=== PATIENT | female | born 1995 | race Caucasian/White ===

== ENCOUNTER 2017-09-11 06:23 | Inpatient (IN) | payer MEDICAID ==
[~2017-09-11] VITALS: Ht 157.5 cm; Wt 55.3 kg
[~2017-09-11 06:23] MED LIST: ALBUTEROL S2 MG/5 ML IH; AUG500 GT; BACLOFEN20 MG GT; BANZEL400 MG GT; CARNITOR100 MG/ML GT; CLINDAMYCIN HC300 MG GT; DEPAKOTE500 MG GT; DIAZEPAM5 MG GT; FLA500 GT; FLAGYL500 MG GT; GLYCOPYRROLATE1 M1 GT; KEP500 GT; KEPPRA1000 M1 GT; LAC GT; LAXATIVE5 M1 PR; LEVAQUIN750 MG GT; LEVOTHYROXIN0.025 M2 GT; LORATADINE5 MG/5 ML GT; NASONEX0.05 MG/Ac; NEXIUM20 MG GT; PEPCID20 MG GT; PHENOBARBITAL64.8 MG GT; PHENOBARBITAL64.8 MG PO; PULMICORT0.5 MG/2 M NEB; SENNA8.6 M2 GT; SENNA8.8 MG/51 GT; TIZANIDINE HCL4 MG PO; TIZANIDINE4 M1 GT; TOP100 PO; TOPAMAX GT; TOPAMAX100 MG GT; TOPAMAX100 MG PO; TOPAMAX25 MG GT; TOPAMAX50 M1 PO; [UNRECOGNIZED DRUG - CODE] GT
[2017-09-11 07:31] LABS: CALCIUM 8.6 mg/dL (8.5-10.1); CARBON DIOXIDE 25.6 mmol/L (21-32); CHLORIDE SERUM 103 mmol/L (98-107); CREATININE SERUM 0.8 mg/dL (0.6-1.0); GFR1 > 60 mL/min; GLUCOSE SERUM 112 mg/dL (74-106); POTASSIUM SERUM 3.5 mmol/L (3.5-5.1); SODIUM SERUM 140 mmol/L (136-145)
[2017-09-11 07:36] LABS: ALBUMIN 3.6 g/dL (3.4-5.0); ALKALINE PHOSPHATASE 152 U/L (46-116); ALT/SGPT 45 U/L (14-59); AST/SGOT 50 U/L (15-37); BILIRUBIN TOTAL 0.3 mg/dL (0.20-1.00); TOTAL PROTEIN, SERUM 8.1 g/dL (6.4-8.2)
[2017-09-11 07:39] LABS: RED CELL DISTRIBUTION WIDTH 12.4 % (11.5-14.5)
[2017-09-11 07:41] LABS: CHOLESTEROL 128 mg/dL (<200); HDL CHOLESTEROL 79 mg/dL (40-60)
[2017-09-11 07:46] LABS: BASOPHIL % 0 % (0-2); PLATELET COUNT 122 x10^3mcL (130-400)
[2017-09-11] MEDS ORDERED: FLOVENT DI100 MCG/A1 (08:29)
[2017-09-11 08:52] LABS: microscopic required? NO
[2017-09-11 09:06] LABS: urine erythrocyte NEGATIVE (NEGATIVE)
[2017-09-11 10:52] LABS: T3 TOTAL 0.62 ng/mL
[2017-09-11 11:12] LABS: AMPHETAMINE QUAL UR NONE DETECTED (NEG <=1000); MAGNESIUM 2.2 mg/dL (1.8-2.4); PHOSPHOROUS 2.5 mg/dL (2.5-4.9)
[2017-09-11 11:16] LABS: CHOLESTEROL/HDL RATIO 1.6
[2017-09-11 11:20] LABS: FREE T4 0.85 ng/dL (0.76-1.46); FREE THYROXINE INDEX 1.9 ug/dL (1.4-4.5); T4(THYROXINE) 5.7 ug/dL (4.7-13.3)
[2017-09-11 11:47] VITALS: BP 102/40
[2017-09-11 14:28] VITALS: BP 102/40
[2017-09-11 19:15] VITALS: BP 111/54
[2017-09-11 21:03] VITALS: BP 115/73
[2017-09-12 05:21] VITALS: BP 112/60
[2017-09-12 09:44] VITALS: BP 104/54
[2017-09-12 18:29] LABS: CALCIUM 7.7 mg/dL (8.5-10.1); CARBON DIOXIDE 23.4 mmol/L (21-32); CHLORIDE SERUM 112 mmol/L (98-107); CREATININE SERUM 0.5 mg/dL (0.6-1.0); GFR1 > 60 mL/min; GLUCOSE SERUM 112 mg/dL (74-106); POTASSIUM SERUM 3.5 mmol/L (3.5-5.1); SODIUM SERUM 144 mmol/L (136-145)
[2017-09-12 18:43] LABS: BASOPHIL % 0.4 % (0-2); RED CELL DISTRIBUTION WIDTH 13.6 % (11.5-14.5)
[2017-09-12 19:08] VITALS: BP 100/46
[2017-09-12 20:12] LABS: PLATELET COUNT 123 x10^3mcL (130-400)
[2017-09-12 21:08] VITALS: BP 123/50
[2017-09-13 05:46] VITALS: BP 127/52
[2017-09-13 07:56] LABS: BASOPHIL % 0.1 % (0-2); RED CELL DISTRIBUTION WIDTH 13.4 % (11.5-14.5)
[2017-09-13 08:19] LABS: PLATELET COUNT 88 x10^3mcL (130-400)
[2017-09-13 08:22] LABS: CALCIUM 8.2 mg/dL (8.5-10.1); CARBON DIOXIDE 22.1 mmol/L (21-32); CHLORIDE SERUM 111 mmol/L (98-107); CREATININE SERUM 0.4 mg/dL (0.6-1.0); GFR1 > 60 mL/min; GLUCOSE SERUM 102 mg/dL (74-106); MAGNESIUM 1.9 mg/dL (1.8-2.4); PHOSPHOROUS 2.4 mg/dL (2.5-4.9); POTASSIUM SERUM 3.8 mmol/L (3.5-5.1); SODIUM SERUM 143 mmol/L (136-145)
[2017-09-13 10:20] VITALS: BP 104/72
[2017-09-13 20:53] VITALS: BP 98/40
[2017-09-14 06:03] VITALS: BP 93/49
[2017-09-14 07:07] LABS: CALCIUM 8.7 mg/dL (8.5-10.1); CARBON DIOXIDE 22.4 mmol/L (21-32); CHLORIDE SERUM 108 mmol/L (98-107); CREATININE SERUM 0.3 mg/dL (0.6-1.0); GFR1 > 60 mL/min; GLUCOSE SERUM 119 mg/dL (74-106); POTASSIUM SERUM 3.8 mmol/L (3.5-5.1); SODIUM SERUM 140 mmol/L (136-145)
[2017-09-14 07:23] LABS: PLATELET COUNT 107 x10^3mcL (130-400); RED CELL DISTRIBUTION WIDTH 13.2 % (11.5-14.5)
[2017-09-14 09:13] VITALS: BP 99/54
[2017-09-14 11:25] LABS: BAND NEUTROPHIL 6 % (0-10); BASOPHIL 0 % (0-2); MONOCYTE 9 % (0-7); SEGMENTED NEUTROPHILS 57 % (37-75)
[2017-09-14 11:26] LABS: PLATELET MORPHOLOGY PLATELETS NORMAL
[2017-09-14 17:15] VITALS: BP 90/64
[2017-09-14 22:00] VITALS: BP 93/51
[2017-09-15 06:20] VITALS: BP 93/62
[2017-09-15 07:00] LABS: RED CELL DISTRIBUTION WIDTH 12.2 % (11.5-14.5)
[2017-09-15 07:09] LABS: BASOPHIL % 2.4 % (0-2); PLATELET COUNT 121 x10^3mcL (130-400)
[2017-09-15 07:28] LABS: CALCIUM 8.9 mg/dL (8.5-10.1); CARBON DIOXIDE 21.7 mmol/L (21-32); CHLORIDE SERUM 106 mmol/L (98-107); CREATININE SERUM 0.3 mg/dL (0.6-1.0); GFR1 > 60 mL/min; GLUCOSE SERUM 117 mg/dL (74-106); POTASSIUM SERUM 4.2 mmol/L (3.5-5.1); SODIUM SERUM 139 mmol/L (136-145)
[2017-09-15] MEDS ORDERED: LEVOFLOXACIN500 M1 GT (08:25)
[2017-09-15] MEDS ORDERED: LAC GT (08:26)
[2017-09-15 10:12] VITALS: BP 103/56
[2017-09-15 13:39] VITALS: BP 103/56
== END 2017-09-15 17:10 | DRG 137 ==
LOC: ED 06:23 → MU 08:44 → DU 08:44 → MU 09-12 07:47
PROVIDERS: Emergency Medicine; Family Medicine
DX: J69.0 Pneumonitis due to inhalation of food and vomit (principal); N17.0 Acute kidney failure with tubular necrosis; H47.619 Cortical blindness, unspecified side of brain; R53.2 Functional quadriplegia; F73 Profound intellectual disabilities; G80.1 Spastic diplegic cerebral palsy; H00.15 Chalazion left lower eyelid; G40.409 Other generalized epilepsy and epileptic syndromes, not intractable, without status epilepticus; E83.39 Other disorders of phosphorus metabolism; E83.51 Hypocalcemia; K59.00 Constipation, unspecified; J31.0 Chronic rhinitis; Z93.1 Gastrostomy status; Z74.01 Bed confinement status; Z68.1 Body mass index [BMI] 19.9 or less, adult; J44.1 Chronic obstructive pulmonary disease with (acute) exacerbation
CPT/HCPCS: 83880; 84439; 87804; 90658; J0696; J1956; J3490; J7030; J7613; J7626; Q0092

== ENCOUNTER 2017-09-19 09:33 | Inpatient (IN) | payer MEDICAID ==
[~2017-09-19] VITALS: Ht 152.4 cm; Wt 44.0 kg
[~2017-09-19 09:33] MED LIST changes: +FLOVENT DI100 MCG/A1; +LEVOFLOXACIN500 M1 GT
[2017-09-19 09:36] VITALS: Ht 152.4 cm; Wt 44.0 kg
[2017-09-19] MEDS ORDERED: CRANBERRY450 M2 GT (10:08)
[2017-09-19] MEDS ORDERED: LORAZEPAM2 MG GT (10:13)
[2017-09-19 10:49] LABS: CALCIUM 8.8 mg/dL (8.5-10.1); CARBON DIOXIDE 25.1 mmol/L (21-32); CHLORIDE SERUM 106 mmol/L (98-107); CREATININE SERUM 0.5 mg/dL (0.6-1.0); GFR1 > 60 mL/min; GLUCOSE SERUM 85 mg/dL (74-106); POTASSIUM SERUM 4.1 mmol/L (3.5-5.1); SODIUM SERUM 143 mmol/L (136-145)
[2017-09-19 10:53] LABS: ALBUMIN 3.6 g/dL (3.4-5.0); ALKALINE PHOSPHATASE 143 U/L (46-116); ALT/SGPT 101 U/L (14-59); AST/SGOT 58 U/L (15-37); BILIRUBIN TOTAL 0.3 mg/dL (0.20-1.00); TOTAL PROTEIN, SERUM 7.8 g/dL (6.4-8.2)
[2017-09-19 10:54] LABS: BASOPHIL % 0.3 % (0-2); PLATELET COUNT 245 x10^3mcL (130-400); RED CELL DISTRIBUTION WIDTH 13.1 % (11.5-14.5)
[2017-09-19 11:08] LABS: UA SPECIFIC GRAVITY 1.015 (1.005-1.035); microscopic required? YES; urine erythrocyte NEGATIVE (NEGATIVE)
[2017-09-19 11:33] LABS: MAGNESIUM 2.4 mg/dL (1.8-2.4); PHOSPHOROUS 4.1 mg/dL (2.5-4.9)
[2017-09-19 11:48] LABS: TOTAL PROTEIN CSF 274.1 mg/dL (15-45)
[2017-09-19 12:11] LABS: APPEARANCE CSF BLOODY; COLOR CSF RED; LYMPHOCYTE CSF 40 % (40-80); MONOCYTE CSF 10 %; RBC CSF 35 /cumm (0); VOLUME CSF 1.5 mL; WBC CSF 8 /cumm (0-5)
[2017-09-19 14:31] LABS: APPEARANCE CSF CLOUDY; COLOR CSF BLOODY; LYMPHOCYTE CSF 40 % (40-80); RBC CSF 35 /cumm (0); VOLUME CSF 1.5 mL; WBC CSF 8 /cumm (0-5)
[2017-09-19 14:32] LABS: MONOCYTE CSF 10 %
[2017-09-19 15:46] VITALS: BP 98/48
[2017-09-19 17:00] VITALS: BP 85/60
[2017-09-19 19:15] VITALS: BP 106/51
[2017-09-19 23:30] VITALS: BP 88/42
[2017-09-20 03:05] VITALS: BP 101/59
[2017-09-20 05:32] LABS: BASOPHIL % 0.3 % (0-2); CHLORIDE SERUM 114 mmol/L (98-107); CREATININE SERUM 0.4 mg/dL (0.6-1.0); GFR1 > 60 mL/min; GLUCOSE SERUM 82 mg/dL (74-106); MAGNESIUM 2.3 mg/dL (1.8-2.4); PHOSPHOROUS 4.5 mg/dL (2.5-4.9); PLATELET COUNT 181 x10^3mcL (130-400); POTASSIUM SERUM 4.1 mmol/L (3.5-5.1); RED CELL DISTRIBUTION WIDTH 12.9 % (11.5-14.5); SODIUM SERUM 147 mmol/L (136-145)
[2017-09-20 08:00] VITALS: BP 111/72
[2017-09-20 12:00] VITALS: BP 99/56
[2017-09-20 16:00] VITALS: BP 119/73
[2017-09-20 22:12] VITALS: BP 104/52
[2017-09-21] VITALS (8 sets, daily range): BP systolic 90–148; BP diastolic 50–77
[2017-09-21 05:56] LABS: BASOPHIL % 0.3 % (0-2); PLATELET COUNT 226 x10^3mcL (130-400); RED CELL DISTRIBUTION WIDTH 12.9 % (11.5-14.5)
[2017-09-21 05:57] LABS: CALCIUM 8.6 mg/dL (8.5-10.1); CARBON DIOXIDE 23.3 mmol/L (21-32); CHLORIDE SERUM 111 mmol/L (98-107); CREATININE SERUM 0.6 mg/dL (0.6-1.0); GFR1 > 60 mL/min; GLUCOSE SERUM 91 mg/dL (74-106); MAGNESIUM 2.3 mg/dL (1.8-2.4); PHOSPHOROUS 2.9 mg/dL (2.5-4.9); POTASSIUM SERUM 3.6 mmol/L (3.5-5.1); SODIUM SERUM 145 mmol/L (136-145)
[2017-09-22 05:00] VITALS: BP 100/55
[2017-09-22 06:49] LABS: CALCIUM 8.4 mg/dL (8.5-10.1); CARBON DIOXIDE 22.8 mmol/L (21-32); CHLORIDE SERUM 111 mmol/L (98-107); CREATININE SERUM 0.5 mg/dL (0.6-1.0); GFR1 > 60 mL/min; GLUCOSE SERUM 106 mg/dL (74-106); MAGNESIUM 2.2 mg/dL (1.8-2.4); PHOSPHOROUS 3.4 mg/dL (2.5-4.9); SODIUM SERUM 144 mmol/L (136-145)
[2017-09-22 07:02] LABS: BASOPHIL % 0.5 % (0-2); PLATELET COUNT 196 x10^3mcL (130-400); RED CELL DISTRIBUTION WIDTH 12.9 % (11.5-14.5)
[2017-09-22 16:43] VITALS: BP 98/41
[2017-09-22 19:46] VITALS: BP 140/58
[2017-09-23 05:55] VITALS: BP 99/43
[2017-09-23 06:43] LABS: CALCIUM 8.5 mg/dL (8.5-10.1); CARBON DIOXIDE 22.1 mmol/L (21-32); CHLORIDE SERUM 110 mmol/L (98-107); CREATININE SERUM 0.5 mg/dL (0.6-1.0); GFR1 > 60 mL/min; GLUCOSE SERUM 105 mg/dL (74-106); MAGNESIUM 2.1 mg/dL (1.8-2.4); PHOSPHOROUS 3.6 mg/dL (2.5-4.9); SODIUM SERUM 143 mmol/L (136-145)
[2017-09-23 08:09] LABS: BASOPHIL % 0.5 % (0-2); PLATELET COUNT 217 x10^3mcL (130-400); RED CELL DISTRIBUTION WIDTH 13.3 % (11.5-14.5)
[2017-09-23 10:06] VITALS: BP 92/45
[2017-09-23 14:24] VITALS: BP 107/433
[2017-09-23 15:01] VITALS: BP 107/43
[2017-09-23] MEDS ORDERED: LORAZEPAM2 MG GT (15:01)
[2017-09-23] MEDS ORDERED: LEVAQUIN750 MG GT (15:06)
[2017-09-23] MEDS ORDERED: CLEOCIN HCL300 MG PO (15:20)
== END 2017-09-23 16:03 | DRG 137 ==
LOC: ED 09:33 → IC 10:52 → DU 10:52 → IC 15:44 → DU 09-20 17:21 → MU 09-22 08:31
PROVIDERS: Emergency Medicine; Family Medicine; Student in an Organized Health Care Education/Training Program
DX: J69.0 Pneumonitis due to inhalation of food and vomit (principal); N17.0 Acute kidney failure with tubular necrosis; H47.619 Cortical blindness, unspecified side of brain; G80.0 Spastic quadriplegic cerebral palsy; Q04.6 Congenital cerebral cysts; M41.40 Neuromuscular scoliosis, site unspecified; K21.9 Gastro-esophageal reflux disease without esophagitis; G40.909 Epilepsy, unspecified, not intractable, without status epilepticus; J45.909 Unspecified asthma, uncomplicated; J30.9 Allergic rhinitis, unspecified; Z68.20 Body mass index [BMI] 20.0-20.9, adult; Z93.1 Gastrostomy status
CPT/HCPCS: 83880; 87804; J0133; J0456; J0696; J1165; J1953; J2060; J2543; J3490; J7030; J7050; J7613; J7620; J7626; J7644; Q0092

== ENCOUNTER 2017-11-12 17:08 | Emergency (ER) | payer MEDICAID ==
[~2017-11-12] VITALS: Ht 147.3 cm; Wt 54.4 kg
[~2017-11-12 17:08] MED LIST changes: +CLEOCIN HCL300 MG PO; +CRANBERRY450 M2 GT; +LORAZEPAM2 MG GT
[2017-11-12 17:18] VITALS: Ht 147.3 cm; Wt 54.4 kg
[2017-11-12 19:33] VITALS: BP 85/46
== END 2017-11-12 19:33 | disposition home or self-care (01) ==
LOC: ED 17:08
DX: S01.111A Laceration without foreign body of right eyelid and periocular area, initial encounter (principal); J45.909 Unspecified asthma, uncomplicated; M41.9 Scoliosis, unspecified; G80.9 Cerebral palsy, unspecified; X58.XXXA Exposure to other specified factors, initial encounter; Y93.89 Activity, other specified; Y92.89 Other specified places as the place of occurrence of the external cause; Y99.8 Other external cause status
CPT/HCPCS: J2001

== ENCOUNTER → 2017-12-08 | Outpatient (CLI) | payer MEDICAID | END | disposition home or self-care (01) | LOC: RD 13:06 | DX: Z87.01 Personal history of pneumonia (recurrent) (principal) ==

== ENCOUNTER 2018-07-24 07:07 | Emergency (ER) | payer MEDICAID ==
[~2018-07-24] VITALS: Ht 152.4 cm; Wt 49.9 kg
[2018-07-24 07:12] VITALS: Ht 152.4 cm; Wt 49.9 kg
[2018-07-24 08:47] LABS: RED CELL DISTRIBUTION WIDTH 13.4 % (11.5-14.5)
[2018-07-24 08:52] LABS: PLATELET COUNT 15 x10^3mcL (130-400)
[2018-07-24 09:20] LABS: UA SPECIFIC GRAVITY 1.015 (1.005-1.035); microscopic required? YES; urine erythrocyte NEGATIVE (NEGATIVE)
[2018-07-24 09:57] LABS: AMPHETAMINE QUAL UR NONE DETECTED (See below)
[2018-07-24 10:38] LABS: ALKALINE PHOSPHATASE 161 U/L (46-116); ALT/SGPT 79 U/L (14-59); AST/SGOT 50 U/L (15-37); BILIRUBIN TOTAL 0.47 mg/dL (0.20-1.00); CHLORIDE SERUM 116 mmol/L (98-107); CREATININE SERUM 0.6 mg/dL (0.6-1.0); GFR1 > 60 mL/min; GLUCOSE SERUM 117 mg/dL (74-106); MAGNESIUM 1.6 mg/dL (1.8-2.4); POTASSIUM SERUM 4.2 mmol/L (3.5-5.1); SODIUM SERUM 147 mmol/L (136-145); TOTAL PROTEIN, SERUM 6.8 g/dL (6.4-8.2)
[2018-07-24 10:39] LABS: ALBUMIN 3.2 g/dL (3.4-5.0)
[2018-07-24 12:06] LABS: SEGMENTED NEUTROPHILS 69 % (37-75)
[2018-07-24 12:07] LABS: BAND NEUTROPHIL 15 % (0-10); MONOCYTE 2 % (0-7); rbc morphology (normal/abnorm) NORMAL (NORMAL)
[2018-07-24 12:08] LABS: PLATELET MORPHOLOGY PLATELETS DECREASED
[2018-07-24 15:38] VITALS: BP 107/65
== END 2018-07-24 15:38 | disposition short-term general hospital (02) ==
LOC: ED 07:07 → DU 10:33 → ED 10:33
PROVIDERS: Emergency Medicine
DX: G40.801 Other epilepsy, not intractable, with status epilepticus (principal); J18.9 Pneumonia, unspecified organism; E46 Unspecified protein-calorie malnutrition; F79 Unspecified intellectual disabilities; E03.9 Hypothyroidism, unspecified; R09.02 Hypoxemia; R74.0 Nonspecific elevation of levels of transaminase and lactic acid dehydrogenase [LDH]; H47.619 Cortical blindness, unspecified side of brain; J45.909 Unspecified asthma, uncomplicated; Z93.1 Gastrostomy status; Z98.890 Other specified postprocedural states
CPT/HCPCS: 82962; G0480; J2543; J2560; J2930; J3490; J7030; J7040; J7613; J7644; Q0092

== ENCOUNTER 2018-08-13 08:25 | Inpatient (IN) | payer MEDICAID ==
[~2018-08-13] VITALS: Ht 152.4 cm; Wt 49.5 kg
[2018-08-13] MEDS ORDERED: BANZEL400 MG PO (09:04)
[2018-08-13] MEDS ORDERED: CARNITOR100 MG/ML PO (09:05)
[2018-08-13] MEDS ORDERED: PULMICORT0.5 MG/2 M NEB (09:07)
[2018-08-13] MEDS ORDERED: SM TUSSIN CF S PO (09:09)
[2018-08-13 10:14] LABS: microscopic required? YES; urine erythrocyte TRACE (NEGATIVE)
[2018-08-13 11:39] LABS: PLATELET COUNT 174 x10^3mcL (130-400)
[2018-08-13 11:45] LABS: BASOPHIL % 0 % (0-2); RED CELL DISTRIBUTION WIDTH 14.7 % (11.5-14.5)
[2018-08-13 11:52] LABS: MAGNESIUM 1.8 mg/dL (1.8-2.4); PHOSPHOROUS 3.5 mg/dL (2.5-4.9)
[2018-08-13 12:08] LABS: CALCIUM 9.4 mg/dL (8.5-10.1); CARBON DIOXIDE 24.6 mmol/L (21-32); CHLORIDE SERUM 106 mmol/L (98-107); CREATININE SERUM 0.5 mg/dL (0.6-1.0); GFR1 > 60 mL/min; GLUCOSE SERUM 91 mg/dL (74-106); POTASSIUM SERUM 4.1 mmol/L (3.5-5.1); SODIUM SERUM 141 mmol/L (136-145)
[2018-08-13 12:10] LABS: T3 TOTAL 1.35 ng/mL
[2018-08-13 12:11] LABS: ALBUMIN 3.7 g/dL (3.4-5.0); ALKALINE PHOSPHATASE 149 U/L (46-116); ALT/SGPT 53 U/L (14-59); AST/SGOT 40 U/L (15-37); BILIRUBIN TOTAL 0.4 mg/dL (0.20-1.00); TOTAL PROTEIN, SERUM 7.9 g/dL (6.4-8.2)
[2018-08-13 12:20] LABS: FREE T4 0.8 ng/dL (0.76-1.46); FREE THYROXINE INDEX 2.6 ug/dL (1.4-4.5); T4(THYROXINE) 8.1 ug/dL (4.7-13.3)
[2018-08-13 16:25] VITALS: BP 123/74
[2018-08-14 04:33] LABS: BASOPHIL % 0.2 % (0-2); PLATELET COUNT 146 x10^3mcL (130-400)
[2018-08-14 04:38] LABS: CALCIUM 8.8 mg/dL (8.5-10.1); CARBON DIOXIDE 29.4 mmol/L (21-32); CHLORIDE SERUM 106 mmol/L (98-107); CREATININE SERUM 0.5 mg/dL (0.6-1.0); GFR1 > 60 mL/min; GLUCOSE SERUM 87 mg/dL (74-106); MAGNESIUM 1.9 mg/dL (1.8-2.4); PHOSPHOROUS 4.3 mg/dL (2.5-4.9); POTASSIUM SERUM 4.1 mmol/L (3.5-5.1); RED CELL DISTRIBUTION WIDTH 15.2 % (11.5-14.5); SODIUM SERUM 141 mmol/L (136-145)
[2018-08-14 08:01] VITALS: BP 125/67
[2018-08-14 11:40] VITALS: BP 91/44
[2018-08-14 16:00] VITALS: BP 101/53
[2018-08-14 20:38] VITALS: BP 98/54
[2018-08-14 23:22] VITALS: BP 90/64
[2018-08-15 04:59] VITALS: BP 114/48
[2018-08-15 06:39] LABS: BASOPHIL % 0.7 % (0-2); PLATELET COUNT 137 x10^3mcL (130-400); RED CELL DISTRIBUTION WIDTH 14.4 % (11.5-14.5)
[2018-08-15 07:23] LABS: CARBON DIOXIDE 24.7 mmol/L (21-32); CHLORIDE SERUM 108 mmol/L (98-107); CREATININE SERUM 0.4 mg/dL (0.6-1.0); GFR1 > 60 mL/min; GLUCOSE SERUM 84 mg/dL (74-106); MAGNESIUM 1.9 mg/dL (1.8-2.4); PHOSPHOROUS 4.4 mg/dL (2.5-4.9)
[2018-08-15 07:38] LABS: CALCIUM 8.7 mg/dL (8.5-10.1); POTASSIUM SERUM 4.3 mmol/L (3.5-5.1); SODIUM SERUM 142 mmol/L (136-145)
[2018-08-15 09:33] VITALS: BP 101/54
[2018-08-15] MEDS ORDERED: BANZEL400 MG PO (11:47)
[2018-08-15] MEDS ORDERED: KEPPRA1000 M1 PO (11:52)
[2018-08-15 13:06] VITALS: BP 101/54
[2018-08-15 13:45] VITALS: BP 110/62
[2018-08-15 16:42] VITALS: BP 90/51
== END 2018-08-15 17:52 | disposition home or self-care (01) | DRG 53 ==
LOC: ED 08:25 → DU 09:55 → IC 09:55 → DU 08-14 22:59
PROVIDERS: Emergency Medicine; Family Medicine
PROC: 06HM33Z Insertion of Infusion Device into Right Femoral Vein, Percutaneous Approach (ICD-10-PCS; principal; 2018-08-13)
DX: G40.901 Epilepsy, unspecified, not intractable, with status epilepticus (principal); J69.0 Pneumonitis due to inhalation of food and vomit; E87.2 Acidosis; F73 Profound intellectual disabilities; H47.619 Cortical blindness, unspecified side of brain; J45.901 Unspecified asthma with (acute) exacerbation; R06.03 Acute respiratory distress; G80.0 Spastic quadriplegic cerebral palsy; K21.9 Gastro-esophageal reflux disease without esophagitis; Z93.1 Gastrostomy status; Q04.6 Congenital cerebral cysts; Z91.14 Patient's other noncompliance with medication regimen
CPT/HCPCS: 80201; 82962; 83880; 84439; 87804; C9113; J1165; J1953; J2060; J2250; J7030; J7620; J7626; Q0092

== ENCOUNTER 2018-08-20 07:11 | Inpatient (IN) | payer MEDICAID ==
[~2018-08-20] VITALS: Ht 152.4 cm; Wt 54.0 kg
[~2018-08-20 07:11] MED LIST changes: +BANZEL400 MG PO; +CARNITOR100 MG/ML PO; +KEPPRA1000 M1 PO; +SM TUSSIN CF S PO
[2018-08-20 07:18] VITALS: Ht 152.4 cm; Wt 54.0 kg
[2018-08-20 08:45] LABS: UA SPECIFIC GRAVITY 1.015 (1.005-1.035); microscopic required? YES; urine erythrocyte TRACE (NEGATIVE)
[2018-08-20 08:53] LABS: CALCIUM 8.8 mg/dL (8.5-10.1); CARBON DIOXIDE 25.7 mmol/L (21-32); CHLORIDE SERUM 106 mmol/L (98-107); CREATININE SERUM 0.7 mg/dL (0.6-1.0); GFR1 > 60 mL/min; GLUCOSE SERUM 106 mg/dL (74-106); POTASSIUM SERUM 3.6 mmol/L (3.5-5.1); SODIUM SERUM 142 mmol/L (136-145)
[2018-08-20 09:10] LABS: ALKALINE PHOSPHATASE 145 U/L (46-116); ALT/SGPT 49 U/L (14-59); AST/SGOT 44 U/L (15-37); BILIRUBIN TOTAL 0.36 mg/dL (0.20-1.00); TOTAL PROTEIN, SERUM 7.8 g/dL (6.4-8.2)
[2018-08-20 09:12] LABS: BASOPHIL % 0.2 % (0-2); PLATELET COUNT 160 x10^3mcL (130-400)
[2018-08-20 09:13] LABS: RED CELL DISTRIBUTION WIDTH 14.7 % (11.5-14.5)
[2018-08-20 09:18] LABS: ALBUMIN 3.3 g/dL (3.4-5.0)
[2018-08-20 09:26] LABS: CK-MB 3.3 ng/mL (0-3.6)
[2018-08-20 10:43] LABS: MAGNESIUM 1.8 mg/dL (1.8-2.4); PHOSPHOROUS 2.5 mg/dL (2.5-4.9)
[2018-08-20 10:45] LABS: CHOLESTEROL/HDL RATIO 1.5
[2018-08-20 10:51] LABS: FREE T4 0.64 ng/dL (0.76-1.46); FREE THYROXINE INDEX 2.2 ug/dL (1.4-4.5)
[2018-08-20 12:46] LABS: T3 TOTAL 0.84 ng/mL
[2018-08-20 14:44] VITALS: BP 103/87
[2018-08-20 15:54] LABS: AMPHETAMINE QUAL UR NONE DETECTED (See below)
[2018-08-20 16:30] VITALS: BP 109/56
[2018-08-20 16:37] VITALS: BP 103/87
[2018-08-20 20:43] VITALS: BP 103/57
[2018-08-21] VITALS (15 sets, daily range): BP systolic 79–153; BP diastolic 36–99
[2018-08-21 06:47] LABS: BASOPHIL % 0.2 % (0-2)
[2018-08-21 06:58] LABS: PLATELET COUNT 105 x10^3mcL (130-400); RED CELL DISTRIBUTION WIDTH 14.7 % (11.5-14.5)
[2018-08-21 07:24] LABS: CALCIUM 8.9 mg/dL (8.5-10.1); CARBON DIOXIDE 24.6 mmol/L (21-32); CHLORIDE SERUM 110 mmol/L (98-107); CREATININE SERUM 0.3 mg/dL (0.6-1.0); GFR1 > 60 mL/min; GLUCOSE SERUM 104 mg/dL (74-106); POTASSIUM SERUM 4.2 mmol/L (3.5-5.1); SODIUM SERUM 143 mmol/L (136-145)
[2018-08-22] VITALS (14 sets, daily range): BP systolic 87–117; BP diastolic 43–73
[2018-08-22 06:42] LABS: CALCIUM 7.9 mg/dL (8.5-10.1); CHLORIDE SERUM 113 mmol/L (98-107); CREATININE SERUM 0.4 mg/dL (0.6-1.0); GFR1 > 60 mL/min; GLUCOSE SERUM 81 mg/dL (74-106); POTASSIUM SERUM 3.8 mmol/L (3.5-5.1); SODIUM SERUM 145 mmol/L (136-145)
[2018-08-22 07:03] LABS: BASOPHIL % 0 % (0-2); PLATELET COUNT 106 x10^3mcL (130-400)
[2018-08-22 11:19] LABS: BAND NEUTROPHIL 3 % (0-10); MONOCYTE 10 % (0-7); SEGMENTED NEUTROPHILS 53 % (37-75)
[2018-08-22 11:30] LABS: PLATELET MORPHOLOGY PLATELETS DECREASED
[2018-08-22] MEDS ORDERED: MEROPENEM-1 GM/50 ML IV (15:53)
== END 2018-08-22 17:20 | disposition short-term general hospital (02) | DRG 720 ==
LOC: ED 07:11 → MU 10:11 → DU 10:11 → IC 10:11 → DU 13:51 → MU 13:53 → DU 13:57 → IC 08-21 14:20
PROVIDERS: Internal Medicine; Specialist
PROC: 5A1945Z Respiratory Ventilation, 24-96 Consecutive Hours (ICD-10-PCS; principal; 2018-08-21)
PROC: 0BH17EZ Insertion of Endotracheal Airway into Trachea, Via Natural or Artificial Opening (ICD-10-PCS; 2018-08-21)
PROC: 05HM33Z Insertion of Infusion Device into Right Internal Jugular Vein, Percutaneous Approach (ICD-10-PCS; 2018-08-22)
PROC: B543ZZA Ultrasonography of Right Jugular Veins, Guidance (ICD-10-PCS; 2018-08-22)
DX: A41.9 Sepsis, unspecified organism (principal); N17.0 Acute kidney failure with tubular necrosis; J96.01 Acute respiratory failure with hypoxia; D61.818 Other pancytopenia; R65.21 Severe sepsis with septic shock; E44.1 Mild protein-calorie malnutrition; M41.9 Scoliosis, unspecified; H47.619 Cortical blindness, unspecified side of brain; R68.0 Hypothermia, not associated with low environmental temperature; F73 Profound intellectual disabilities; N39.0 Urinary tract infection, site not specified; J45.909 Unspecified asthma, uncomplicated; G40.909 Epilepsy, unspecified, not intractable, without status epilepticus; G80.0 Spastic quadriplegic cerebral palsy; R00.1 Bradycardia, unspecified; K21.9 Gastro-esophageal reflux disease without esophagitis; Z93.1 Gastrostomy status; Q04.6 Congenital cerebral cysts; Z68.1 Body mass index [BMI] 19.9 or less, adult
CPT/HCPCS: 36556; 36600; 82962; 83880; 84439; 85378; A4628; C9113; J0461; J0696; J1265; J1642; J2060; J2185; J2250; J3010; J7030; J7040; J7620; Q0092

== ENCOUNTER 2019-07-24 16:02 | Emergency (ER) | payer MEDICAID ==
[~2019-07-24] VITALS: Ht 134.6 cm; Wt 49.9 kg
[~2019-07-24 16:02] MED LIST changes: +MEROPENEM-1 GM/50 ML IV
[2019-07-24 16:05] VITALS: Ht 134.6 cm; Wt 49.9 kg
[2019-07-24 17:23] LABS: RED CELL DISTRIBUTION WIDTH 14.3 % (11.5-14.5)
[2019-07-24 17:27] LABS: CALCIUM 8.6 mg/dL (8.5-10.1); CARBON DIOXIDE 25.2 mmol/L (21-32); CHLORIDE SERUM 105 mmol/L (98-107); CREATININE SERUM 0.6 mg/dL (0.6-1.0); GFR1 > 60 mL/min; GLUCOSE SERUM 98 mg/dL (74-106); POTASSIUM SERUM 3.7 mmol/L (3.5-5.1); SODIUM SERUM 139 mmol/L (136-145)
[2019-07-24 17:30] LABS: ALKALINE PHOSPHATASE 175 U/L (46-116); ALT/SGPT 79 U/L (14-59); AMYLASE 37 U/L (25-115); AST/SGOT 64 U/L (15-37); BILIRUBIN TOTAL 0.6 mg/dL (0.20-1.00); LIPASE 82 IU/L (73-393); TOTAL PROTEIN, SERUM 7.6 g/dL (6.4-8.2)
[2019-07-24 17:32] LABS: ALBUMIN 3.3 g/dL (3.4-5.0)
[2019-07-24 17:34] LABS: BASOPHIL % 0 % (0-2); PLATELET COUNT 119 x10^3mcL (130-400)
[2019-07-24 21:10] VITALS: BP 110/56
== END 2019-07-24 21:30 | disposition home or self-care (01) ==
LOC: ED 16:02
PROVIDERS: Emergency Medicine
DX: G40.909 Epilepsy, unspecified, not intractable, without status epilepticus (principal); E86.0 Dehydration; J45.909 Unspecified asthma, uncomplicated; G80.9 Cerebral palsy, unspecified; R62.50 Unspecified lack of expected normal physiological development in childhood
CPT/HCPCS: 87804; J1953; J2060; J2405; J3490; J7040; Q0162